=== PATIENT | female | born 1980 | race Caucasian/White ===

== ENCOUNTER 2025-01-10 08:28 | Outpatient (CLI) | payer BC | END 2025-01-10 08:29 | disposition home or self-care (01) | LOC: CSHMAMMO 08:28 | PROVIDERS: ATTEND Nurse Practitioner Family | DX: Z12.31 Encounter for screening mammogram for malignant neoplasm of breast (principal); Z80.3 Family history of malignant neoplasm of breast; Z91.89 Other specified personal risk factors, not elsewhere classified | CPT/HCPCS: 77063; 77067 ==